=== PATIENT | female | born 1945 | race Two or more races ===

== ENCOUNTER 2024-07-30 09:57 | Outpatient (CLI) | payer OTHER | END 2024-07-30 10:00 | disposition home or self-care (01) | LOC: SONOGRAMA 09:57 | PROVIDERS: ATTEND Pathology Anatomic Pathology | DX: E04.1 Nontoxic single thyroid nodule (principal); D34 Benign neoplasm of thyroid gland; E07.89 Other specified disorders of thyroid ==